=== PATIENT | male | born 1935 | race Caucasian/White ===

== ENCOUNTER → 2017-08-29 | Outpatient (CLI) | payer OTHER | LOC: CIMAGING 09:42 | PROVIDERS: ATTEND Internal Medicine Geriatric Medicine | DX: N39.43 Post-void dribbling (principal); N18.3 Chronic kidney disease, stage 3 (moderate); Z85.46 Personal history of malignant neoplasm of prostate; Z92.3 Personal history of irradiation | CPT/HCPCS: 76770-PO ==

== ENCOUNTER → 2018-10-12 | Outpatient (CLI) | payer OTHER | LOC: CIMAGING 10:03 | PROVIDERS: ATTEND Nurse Practitioner Family | DX: R09.89 Other specified symptoms and signs involving the circulatory and respiratory systems (principal); J98.11 Atelectasis | CPT/HCPCS: 71046-PO ==